=== PATIENT | male | born 1980 | race Caucasian/White ===

== ENCOUNTER 2016-04-22 09:49 | Emergency (ER) ==
[2016-04-22 09:52] VITALS: BP 142/89; TEMP 96.7; BMI 30.7
--- NOTE | 2016-04-22 10:09 | ED.PDOC ---
General ED Provider: Dr. SUZANNA AMBRIZ JR Chief Complaint: Knee Pain/Injury Stated Complaint: patient c/o pain around left knee cap. states if he moves a certain way the pain will go up or down the leg.[End]3 days 96.7 68 16 97% 142/ 89 8/10 copd arth heat stroke left knee pain[End]history of left shoulder tendonitis has not seen ortho- cannot afford them in [place] no insurance, chronic left knee pain for 2-3 years stepped off a ladder two days ago- worse pain especially with ROM lateral compartent negaticve knee exam no laxity no focal signs but symptoms most consistent with lateral meniscus or lateral condyle injury Time Seen by Physician: 10:09 Mode of Arrival: Walk-In Information Source: Patient Exam Limitations: No limitations Primary Care [facility] Nursing and Triage Documentation Reviewed and Agree: No Review of Systems - Review Of Systems Constitutional: Reports: No symptoms Eyes: Reports: No symptoms Ears, Nose, Mouth, Throat: Reports: No symptoms Respiratory: Reports: No symptoms Cardiac: Reports: No symptoms GI: Reports: No symptoms : Reports: No symptoms Musculoskeletal: Reports: Joint pain Skin: Reports: No symptoms Neurological: Reports: No symptoms Endocrine: Reports: No symptoms Hematologic/Lymphatic: Reports: No symptoms All Other Systems: Other Past Medical History - Past Medical History Previously Healthy: Yes Endocrine: Reports: None Cardiovascular: Reports: None Respiratory: Reports: Other (chronic bronchitis ) Hematological: Reports: None Gastrointestinal: Reports: None Genitourinary: Reports: None Neuro/Psych: Reports: None Musculoskeletal: Reports: None Cancer: Reports: None Other Pertinent Past Medical History: HEAT STROKE - Surgical History General Surgical History: Reports: Unknown - Family History Family History: Reports: Unknown - Social History Smoking Status: Current every day smoker, Heavy tobacco smoker Hx Substance Use: No Alcohol Screening: None Physical Exam - Physical Exam Appearance: Well-appearing Pain Distress: Moderate Neck: Supple Respiratory: Airway patent Musculoskeletal: Normal strength, ROM intact, No edema, No calf tenderness, Limited ROM (TENDER RIGHT KNEE) Skin: Warm, Dry, Normal color Neurological: Sensation intact, Motor intact, Reflexes intact, Cranial nerves intact, Alert, Oriented Psychiatric: Affect appropriate, Mood appropriate Critical Care Note - Critical Care Note Total Time (mins): 0 Course - Course Orders, Labs, Meds: Orders Category Date Time Status SID [ED SID WRAP] .ONCE EMERGENCY 04/22/16 10:54 Active ED CRUTCHES .ONCE EMERGENCY 04/22/16 10:54 Active Naproxen [Naprosyn] MEDS 04/22/16 10:25 Discontinued 500 mg PO ONCE STA KNEE, LEFT 4 VIEWS Stat RADS 04/22/16 10:25 Completed Medications Discontinued Medications Generic Name Dose Route Start Last Admin Trade Name Freq PRN Reason Stop Dose Admin Naproxen 500 mg 04/22/16 10:25 04/22/16 10:41 Naprosyn PO 04/22/16 10:26 500 mg ONCE STA Administration Vital Signs: Temp Pulse Resp BP Pulse Ox 04/22/16 09:50 96.7 F L 68 16 142/89 H 97 Departure - Departure Time of Disposition: 10:53 Disposition: HOME SELF-CARE Discharge Problem: Injury of knee Instructions: Knee Pain (ED), Meniscus Tear (ED) Condition: Fair Pt referred to PMD for follow-up: Yes Additional Instructions: limit weight for 5 days recheck PMD this week consider MRI and recommend orthopedic evaluation may use Naprosyn for pain ice 20 minutes three times a day sid for comfort Prescriptions: Naproxen [Naprosyn] 500 mg PO Q12HR PRN #30 tablet PRN Reason: PAIN Allergies/Adverse Reactions: Allergies aspirin Adverse Reaction (Verified 04/22/16 09:52) THROAT SWELLS codeine Adverse Reaction (Verified 04/22/16 09:52) BREAK OUT Penicillins Adverse Reaction (Verified 04/22/16 09:52) THROAT SWELLS Home Medications: Ambulatory Orders Naproxen [Naprosyn] 500 mg PO Q12HR PRN #30 tablet 04/22/16
[2016-04-22] MEDS ORDERED: NAPROSYN PO STA (10:25)
--- NOTE | 2016-04-22 10:48 | DI ---
Exam: Left knee four views History: Pain after trauma particularly at the left lateral condylar region Findings: AP, tunnel, lateral and sunrise views of the left knee were obtained and shows no evidenc e of fracture, malalignment nor disruption of the femoral tibial nor patellofemoral articulations. There is question of minimal lateral patellar tilt appearing new as compared to the prior study from 02/26/2008. Lateral view suggests a small joint effusion. Each of the three compartments appear n ormal in width. IMPRESSION: Question of slight lateral patellar tilt with slight narrowing of the lateral aspect of the patellofemoral articulation. Minimal patellar spurring. Question of a small joint effusion.
== END 2016-04-22 11:45 | disposition home or self-care (01) ==
LOC: ED 09:49
DX: M25.562 Pain in left knee (principal); G89.29 Other chronic pain; F17.210 Nicotine dependence, cigarettes, uncomplicated
CPT/HCPCS: 99283

== ENCOUNTER 2016-05-04 15:10 | Outpatient (CLI) ==
--- NOTE | 2016-05-04 21:03 | MRI ---
EXAM: MRI left knee without contrast. HISTORY: Pain. Swelling. No left knee surgery.. TECHNIQUE: Using a local extremity coil on a high field strength 1.5 June magnet multiplanar multi sequence MRI was performed of the left knee without intravenous or intra-articular gadolinium contra st.. COMPARISON: Four view plain film examination left knee 04/22/2016. FINDINGS: Within the medial compartment the medial meniscus is intact without discrete surfacing me niscal tear. 5 mm focal cartilage ulceration over the weightbearing medial compartment. More anter ior approximate 6 mm area of subchondral fracture with underlying subchondral edema. Within the lateral compartment lateral meniscus is intact without discrete surfacing meniscal tear. Lateral compartment cartilage congruent without focal underlying subchondral edema. Within the patellofemoral compartment the patella seated with intact patellar attachment of the medi al and lateral patellar retinaculum. Approximate 19 x 11 mm area of chondrosis and cartilage ulcera tion over the medial facet with underlying subchondral remodeling/edema. The trochlear groove carti maryuri relatively congruent. Moderate to large left knee effusion.. No osteochondral loose bodies. Prominent superior patella p lica.. Intact anterior and posterior cruciate ligament fibers. Intercondylar notch ganglion cyst o arturo the posterior cruciate ligament recess. The extensor mechanism is intact. Some trace prepatell ar bursitis. The medial collateral ligament as well as lateral collateral ligament complex and post erolateral corner intact. . IMPRESSION: No discrete surfacing meniscal tear. 6 mm area of subchondral fracture over the anterior weightbearing medial femoral condyle with underl yusef subchondral edema. 5 mm focal cartilage ulceration over the weightbearing medial compartment. Patellar chondrosis/chondromalacia patella. Trace prepatellar bursitis. Moderate to large left effusion. Prominent superior patella plica. Intact cruciate and collateral ligaments. Intercondylar notch ganglion cyst over the posterior cruc iate ligament recess.
== END 2016-05-04 15:11 | disposition home or self-care (01) ==
LOC: RAD 15:10
PROVIDERS: ATTEND Nurse Practitioner Family
DX: M25.562 Pain in left knee (principal); M25.462 Effusion, left knee

== ENCOUNTER 2017-01-13 23:10 | Emergency (ER) ==
[2017-01-13 23:13] VITALS: BP 132/88; TEMP 98.2; BMI 28.1
[2017-01-13] MEDS ORDERED: BACTRIM DS 800/160 MG PO STA (23:35)
--- NOTE | 2017-01-13 23:37 | ED.PDOC ---
General ED Provider: Dr. KAYDOE SMITH Chief Complaint: Abscess Stated Complaint: Patient states he has noticed a swelling on the middle of the back of the neck. Time Seen by Physician: 23:35 Mode of Arrival: Walk-In Information Source: Patient Exam Limitations: No limitations [facility] and Triage Documentation Reviewed and Agree: Yes Review of Systems - Review Of Systems Constitutional: Reports: No symptoms Eyes: Reports: No symptoms Ears, Nose, Mouth, Throat: Reports: No symptoms Respiratory: Reports: No symptoms Cardiac: Reports: No symptoms GI: Reports: No symptoms : Reports: No symptoms Musculoskeletal: Reports: No symptoms Skin: Reports: Lumps (on the back of neck. ) Neurological: Reports: No symptoms Endocrine: Reports: No symptoms Hematologic/Lymphatic: Reports: No symptoms All Other Systems: Reviewed and Negative Past Medical History - Past Medical History Previously Healthy: Yes Endocrine: Reports: None Cardiovascular: Reports: None Respiratory: Reports: Other (chronic bronchitis ) Hematological: Reports: None Gastrointestinal: Reports: None Genitourinary: Reports: None Neuro/Psych: Reports: None Musculoskeletal: Reports: None Cancer: Reports: None Other Pertinent Past Medical History: HEAT STROKE - Surgical History General Surgical History: Reports: Unknown - Family History Family History: Reports: Unknown - Social History Smoking Status: Current every day smoker, Heavy tobacco smoker Hx Substance Use: No Alcohol Screening: None Physical Exam - Physical Exam Appearance: Well-appearing, No pain distress, Well-nourished Respiratory: Airway patent, Breath sounds clear, Breath sounds equal, Respirations nonlabored Cardiovascular: RRR, Pulses normal, No rub, No murmur Psychiatric: Affect appropriate, Mood appropriate Critical Care Note - Critical Care Note Total Time (mins): 0 Course - Course Orders, Labs, Meds: Orders Category Date Time Status Sulfamethoxazole/Trimethoprim [Bactrim Ds 800/160 mg] MEDS 01/13/17 23:35 Discontinued 1 tab PO ONCE STA Medications Discontinued Medications Generic Name Dose Route Start Last Admin Trade Name Freq PRN Reason Stop Dose Admin Trimethoprim/Sulfamethoxazole 1 tab 01/13/17 23:35 01/13/17 23:46 Bactrim Ds 800/160 Mg PO 01/13/17 23:36 1 tab ONCE STA Administration Vital Signs: Temp Pulse Resp BP Pulse Ox 01/13/17 23:11 98.2 F 72 16 132/88 95 Departure - Departure Time of Disposition: 23:38 Disposition: HOME SELF-CARE Discharge Problem: Abscess, Sebaceous cyst Instructions: Abscess (ED) Condition: Fair Pt referred to PMD for follow-up: Yes Additional Instructions: Take Medications as prescribed Follow up with PCP in 3-7 days to see if need for I and D Take Motrin as needed for pain. Prescriptions: Ibuprofen [Motrin] 600 mg PO Q6H PRN #30 tablet PRN Reason: Analgesia Sulfamethoxazole/Trimethoprim [Bactrim Ds Tablet] 1 each PO BID #20 tablet Allergies/Adverse Reactions: Allergies aspirin Adverse Reaction (Verified 01/13/17 23:13) THROAT SWELLS codeine Adverse Reaction (Verified 01/13/17 23:13) BREAK OUT Penicillins Adverse Reaction (Verified 01/13/17 23:13) THROAT SWELLS Home Medications: Ambulatory Orders Ibuprofen [Motrin] 600 mg PO Q6H PRN #30 tablet 01/13/17 Sulfamethoxazole/Trimethoprim [Bactrim Ds Tablet] 1 each PO BID #20 tablet 01/13 Disposition Discussed With: Patient
== END 2017-01-14 00:10 | disposition home or self-care (01) ==
LOC: ED 23:10
DX: L72.3 Sebaceous cyst (principal)
CPT/HCPCS: 99282

== ENCOUNTER 2017-09-10 03:34 | Emergency (ER) ==
[2017-09-10 03:56] VITALS: BP 153/90; TEMP 97.1; BMI 29.4
--- NOTE | 2017-09-10 04:43 | CT ---
Exam: CT of the left shoulder without contrast History: Shoulder pain Technique: [address] of the left shoulder with multiplanar reformations FINDINGS: The acromioclavicular joint shows moderate osteoarthritic enlargement. Marginal cystic ch anges are present. The glenohumeral joint appears normal. No fatty replacement of rotator cuff musc les. No obvious abnormal joint fluid. No adjacent chest wall abnormality. Impression: 1. Osteoarthritic change of the acromioclavicular joint. 2. Normal glenohumeral joint
--- NOTE | 2017-09-10 05:29 | ED.PDOC ---
General ED Provider: Dr. BHUPINDER ESPOSITO-ER Chief Complaint: Shoulder Pain/Injury Stated Complaint: my shoulder hurts when i move my arm Time Seen by Physician: 03:45 Mode of Arrival: Walk-In Information Source: Patient Exam Limitations: No limitations Primary Care Provider: [facility] Nursing and Triage Documentation Reviewed and Agree: Yes Does patient meet sepsis criteria?: No System Inflammatory Response Syndrome: Not Applicable Sepsis Protocol: For patient's 13 years and over: Temp is 96.8 and below OR 101 and greater Pulse >90 BPM Resp >20/minute Acutely Altered Mental Status Are patient's symptoms suggestive of a new infection, such as: -Pneumonia -Skin, Soft Tissue -Endocarditis -UTI -Bone, Joint Infection -Implantable Device -Acute Abdominal Infection -Wound Infection -Meningitis -Blood Stream Catheter Infection -Unknown Musculoskeletal Complaint Exam - Shoulder Pain Complaint/Exam Mechanism of Injury: Reports: No known trauma Onset/Duration: several days Symptoms Are: Still present Timing: Intermittent Initial Severity: Mild Current Severity: Mild Location: Reports: Discrete Character: Reports: Dull, Aching, Spasmodic Aggravating: Reports: Movement, Lifting, Flexion, Extension, Internal rotation, External rotation, Abduction Associated Signs and Symptoms: Denies: Swelling, Redness, Bruising, Fever, Weakness, Numbness, Tingling Limited Range of Motion: Present: Abduction, Adduction, Flexion, Extension, Internal rotation, External rotation, Rotator cuff muscles Differential Diagnoses: Arthritis, Rotator Cuff Injury Review of Systems - Review Of Systems Constitutional: Reports: No symptoms Eyes: Reports: No symptoms Ears, Nose, Mouth, Throat: Reports: No symptoms Respiratory: Reports: No symptoms Cardiac: Reports: No symptoms GI: Reports: No symptoms : Reports: No symptoms Musculoskeletal: Reports: Joint pain Skin: Reports: No symptoms Neurological: Reports: No symptoms Endocrine: Reports: No symptoms Hematologic/Lymphatic: Reports: No symptoms All Other Systems: Reviewed and Negative Past Medical History - Past Medical History Previously Healthy: Yes Endocrine: Reports: None Cardiovascular: Reports: None Respiratory: Reports: Other (chronic bronchitis ) Hematological: Reports: None Gastrointestinal: Reports: None Genitourinary: Reports: None Neuro/Psych: Reports: None Musculoskeletal: Reports: None Cancer: Reports: None Other Pertinent Past Medical History: HEAT STROKE - Surgical History General Surgical History: Reports: Unknown - Family History Family History: Reports: Unknown - Social History Smoking Status: Current every day smoker, Heavy tobacco smoker Hx Substance Use: No Alcohol Screening: None - Immunizations Tetanus Shot up to Date: Yes Physical Exam - Physical Exam Appearance: Well-appearing, No pain distress, Well-nourished Pain Distress: Mild Eyes: JACINTO, EOMI, Conjunctiva clear ENT: Ears normal, Nose normal, Oropharynx normal Neck: Supple Respiratory: Airway patent, Breath sounds clear, Breath sounds equal, Respirations nonlabored Cardiovascular: RRR, Pulses normal, No rub, No murmur GI/: Soft Musculoskeletal: Limited ROM Skin: Warm, Dry, Normal color Neurological: Sensation intact, Motor intact, Reflexes intact, Cranial nerves intact, Alert, Oriented Psychiatric: Affect appropriate, Mood appropriate Interpretation - Radiology Interpretation Radiology Interpretation By: Radiologist Radiology Results: Positive Exam Interpreted: CT Scan Re-Evaluation - Re-Evaluation Time of Re-Evaluation: : Status: Improved Vital Signs Stable: Yes Pain Level: asleep in exam room Appearance: NAD Lungs: Clear Skin: Warm and Dry Neuro: Alert and Oriented X3 CV: RRR Additional Comments: no chest pain or dyspnea Critical Care Note - Critical Care Note Total Time (mins): 0 Course - Course Orders, Labs, Meds: Orders Category Date Time Status CT SHOULDER LEFT W/O CONTRAST Stat RADS 09/10/17 04:04 Completed Vital Signs: Temp Pulse Resp BP Pulse Ox 09/10/17 03:34 97.1 F L 89 20 153/90 H 97 Departure - Departure Time of Disposition: :29 Disposition: HOME SELF-CARE Discharge Problem: Shoulder pain Qualifiers: Chronicity: unspecified Laterality: unspecified laterality Qualified Code(s): M25.519 - Pain in unspecified shoulder Instructions: Osteoarthritis (ED) Condition: Good Pt referred to PMD for follow-up: Yes IPMP verified?: No Additional Instructions: ultram 50mg 1-2 tabs q 6hrs prn pain #12=---f.u in 2-3 days with pcsp Allergies/Adverse Reactions: Allergies aspirin Adverse Reaction (Verified 09/10/17 03:41) THROAT SWELLS codeine Adverse Reaction (Verified 09/10/17 03:41) BREAK OUT Penicillins Adverse Reaction (Verified 09/10/17 03:41) THROAT SWELLS Home Medications: Ambulatory Orders 1 [No Reported Medications] 09/10/17 Disposition Discussed With: Patient, Family
== END 2017-09-10 05:40 | disposition home or self-care (01) ==
LOC: ED 03:34
DX: M25.512 Pain in left shoulder (principal); F17.210 Nicotine dependence, cigarettes, uncomplicated
CPT/HCPCS: 99282

== ENCOUNTER 2017-09-28 10:25 | Outpatient (CLI) ==
--- NOTE | 2017-09-28 14:12 | US ---
EXAM: Ultrasound soft tissue neck HISTORY: Lipoma COMPARISON: None FINDINGS: Ultrasound soft tissue neck was performed in the region of clinical concern, posterior nec k. No mass identified. IMPRESSION: No mass identified in the region of clinical concern
== END 2017-09-28 10:26 | disposition home or self-care (01) ==
LOC: RAD 10:25
PROVIDERS: ATTEND Physician Assistant
DX: D17.9 Benign lipomatous neoplasm, unspecified (principal); R00.0 Tachycardia, unspecified
CPT/HCPCS: 93005; 93010

== ENCOUNTER 2017-10-10 13:11 | Outpatient (CLI) | END 2017-10-10 13:12 | disposition home or self-care (01) | LOC: CAR 13:11 | PROVIDERS: ATTEND Physician Assistant | DX: R06.00 Dyspnea, unspecified (principal) ==

== ENCOUNTER 2017-10-15 14:00 | Outpatient (RCR) ==
--- NOTE | 2017-09-26 15:16 | RS.OPPTEV2 ---
Date of Note: 09/26/17 Visit #: 1 Date of Evaluation: 09/26/17 Payer Source: Medicaid Surgery Performed?: No Treatment Diagnosis: L shld pain History of Condition/Mechanism of Injury:: pt states she has had a long hx of L shld pain. pt states pain has gotten worse in the past month. 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 Functional Limitations: Sleep, ADL's, Reaching, Pushing, Pulling, Lifting, Carrying Current Subjective/complaints:: pt states that he has constant L shld pain. pt states pain wakes him up frequently at night. Reports that occasionally has pain down into his hand. Treatment Side (optional): Left *Precautions: n/a Medical History Medical History: COPD, Arthritis Smoking Status: Current every day smoker Diagnostic Testing/Imaging:: Shld CT scan 09/10/17 shows osteoarthritic change of acromioclavicular joint. normal glenohumeral joint. Hx Home Medications: none Patient's Goals: decrease L shld pain and return to work Pain Assessment - Pain Description Pain Location: L shld Pain Description: Sharp, Aching Current Pain Intensity: 7-8/10 Worst Pain Intensity: 10 Functional Outcome Measure UE Functional Index: 56 (30%) - G Codes & Severity Modifier G Codes & Modifier: n/a Source of G Code score: n/a Observation - Observation Inspection: swelling noted in L AC joint Posture: Forward Head, Rounded Shoulders Handedness: Right Gait - Gait Pattern General Gait Pattern Observation: No Deviations/Normal General Range of Motion: RUE and BLE WFL's. Cervical ROM WFL's Muscle Strength: RUE and BLE 5/5 Shoulder ROM: Right WFL's Shoulder Muscle Strength: Right WFL's - Left Shoulder ROM Left Shoulder Flexion: 110 Left Shoulder Abduction: 98 Left Shoulder ROM Limitations: Soft Tissue Tightness, Muscle Weakness, Pain - Left Shoulder Strength Left Shoulder Flexion: 3- Fair- Left Shoulder Extension: 3- Fair- Left Shoulder Abduction: 2+ Poor+ - Special Tests Shoulder Empty Can (Supraspinatus) Test: Positive Left Shoulder Drop Arm Test: Positive Left Acromioclavicular Joint Distraction Test: Positive Left Comments: + lift off test L Palpation Palpation Findings: Tenderness, Trigger Point Comments:: point tenderness noted over L AC joint, trigger points noted in supraspinatus and upper trap Sensation - Sensation Right Upper Extremity: Intact/Normal Left Upper Extremity: Intact/Normal Right Lower Extremity: Intact/Normal Left Lower Extremity: Intact/Normal Balance - Sitting Balance Static Sitting Balance: Normal Dynamic Sitting Balance: Normal - Standing Balance Static Standing Balance: Normal Dynamic Standing Balance: Normal - Treatment Modality: Ultrasound Parameters/Method Applied: pulsed at 1.5w/cm2 x 7 mins Treatment Area: L shld AC joint and prox shld Patient Position: Sitting - Heat/Cryotherapy Treatment: Cryotherapy Comments:: L shld Interventions - Exercise/Activities/Manual Therapy Exercises/Activities: pt performed pendulum ex, unable to tolerate further ex due to pain. Manual Therapy: n/a HOME EXERCISE PROGRAM: pt given written HEP including pendulum ex, and isometric shld flex, shld ext, shld abd, shld add - Charges Timed Code Treatment Minutes: 51 Total Treatment Time: 60 Procedures billed for this date of service:: eval low, ultrasound, cold pack EVALUATION COMPLEXITY LEVEL EVALUATION COMPLEXITY LEVEL: HISTORY: Low (OA), EXAM OF BODY SYSTEMS: Medium ( pain, ROM, strength, posture), CLINICAL PRESENTATION: Medium (evolving), CLINICAL DECISION MAKING: Low Assessment Assessment: pt presents with decreased ROM and strength L shld with evidence of AC joint/impingement L shld. Feel pt would benefit from skilled PT for modalities to decrease pain and inflammation as well as strengthening/ROM ex. Patient Education: Home Exercise Program, Education of Plan of Care Rehab Potential: Good Short Term Goals Goal #1: pt rate pain L shld <7/10 Goal to be met by: 10/10/17 Goal #2: Improve L shld flex 115, abd 105 Goal to be met by: 10/10/17 Goal #3: pt able to sleep without interruption x 4-5 hours. Goal to be met by: 10/10/17 Goal #4: pt independent with intial HEP Goal to be met by: 10/10/17 Inclusion Special Education Teacher Goals Goal #1: pt improve L shld ROM flex 125 abd 115 Goal to be met by: 10/24/17 Goal #2: pt rate pain < 5/10 L shld Goal to be met by: 10/24/17 Goal #3: pt report improved ability to perform normal household duties Goal to be met by: 10/24/17 Plan - Treatment to be Provided Procedures: Therapeutic Exercises, Manual Therapy, Massage, Patient Education Modalities: Electrical Stimulation, Ultrasound/Phonophoresis, Cryotherapy, Hot Packs - Treatment Plan Frequency: 2 X week Duration: 4 weeks ORDER # VISITS AND/OR THROUGH DATE: 10/24/17 - Treatment Code (1) Pain in joint, shoulder region Code(s): M25.519 - PAIN IN UNSPECIFIED SHOULDER Qualifiers: Laterality: left Qualified Code(s): M25.512 - Pain in left shoulder (2) Acromioclavicular joint arthritis Code(s): M19.90 - UNSPECIFIED OSTEOARTHRITIS, UNSPECIFIED SITE Qualifiers: Laterality: left Qualified Code(s): M19.012 - Primary osteoarthritis, left shoulder (3) Limited range of motion (ROM) of shoulder Code(s): M25.619 - STIFFNESS OF UNSPECIFIED SHOULDER, NOT ELSEWHERE CLASSIFIED (4) Muscle weakness Code(s): M62.81 - MUSCLE WEAKNESS (GENERALIZED)
--- NOTE | 2017-10-03 10:41 | RS.CXNS ---
Date of scheduled appointment: 10/03/17 Type: No Show
--- NOTE | 2017-10-03 14:25 | RS.OPPTDN ---
Subjective Date of Note: 10/03/17 Visit #: 2 Date of Evaluation: 09/26/17 Payer Source: Medicaid Treatment Diagnosis: L shld pain Current Subjective/complaints:: Patient says he hurts no matter if he is at rest or with activity. Says he really wants to get back to work. Reports he has no improvement with sleep. *Precautions: n/a - Treatment Modality: Ultrasound Parameters/Method Applied: pulsed 20% @ 1.5 w/cm2 x 12 mins to the L AC and supraspinatus region Patient Position: Sitting - Heat/Cryotherapy Treatment: Cryotherapy (15 ) Interventions - Exercise/Activities/Manual Therapy Exercises/Activities: Patient receives PROM to the L shoulder supine all directions. Isometric shoulder flex/ext/IR/ER 2x5. 1# wand for bilateral shoulder flexion in supine x 8. Sitting: shoulder shrugs, scap retraction with red tband x 10. 1# wand for bilateral shoulder flexion x 8. Shoulder pulleys x 15 slowly. Total minutes of Exercise: 25 Manual Therapy: n/a HOME EXERCISE PROGRAM: pt given written HEP including pendulum ex, and isometric shld flex, shld ext, shld abd, shld add - Charges Timed Code Treatment Minutes: 37 Total Treatment Time: 52 Procedures billed for this date of service:: cp, u/s, ex2 Assessment: Patient presents with moderate to severe pain to the L shoulder and UT. Limited ROM actively, but able to achieve more mobility today passively ( flex to ~145 degrees avg and abd to ~115 degrees). Isometrics harlan well with exception of resisted shoulder flexion causing increased pain. Patient admitted reduced pain with cryotherapy. Instructed patient on how to make homemade ice bag for home. Patient Education: Education of diagnosis, Body/Joint mechanics, Home Exercise Program, Education of Plan of Care Patient demonstrates compliance with HEP?: Yes Short Term Goals Goal #1: pt rate pain L shld <7/10 Goal to be met by: 10/10/17 Progress towards Goal:: No Change Goal #2: Improve L shld flex 115, abd 105 Goal to be met by: 10/10/17 Progress towards Goal:: Progressing Goal #3: pt able to sleep without interruption x 4-5 hours. Goal to be met by: 10/10/17 Progress towards Goal:: No Change Goal #4: pt independent with intial HEP Goal to be met by: 10/10/17 Progress towards Goal:: Progressing [facility] Nurse Goals Goal #1: pt improve L shld ROM flex 125 abd 115 Goal to be met by: 10/24/17 Goal #2: pt rate pain < 5/10 L shld Goal to be met by: 10/24/17 Goal #3: pt report improved ability to perform normal household duties Goal to be met by: 10/24/17 Plan PLAN OF CARE EXPIRES ON:: 10/24/17 ORDER # VISITS AND/OR THROUGH DATE: 10/24/17 PLAN: Patient to continue to start phonophoresis and progress therex as harlan BIW.
--- NOTE | 2017-10-05 15:30 | RS.OPPTDN ---
Subjective Date of Note: 10/05/17 Visit #: 3 Date of Evaluation: 09/26/17 Payer Source: Medicaid Treatment Diagnosis: L shld pain Current Subjective/complaints:: Patient says he still has same amount of pain. Reports that he still has limited mobility and he is hesitant about returning to work due to the duties he must perform and his continued pain. Says he is still not able to sleep. Says if he is able to sleep 4 hours, he'd be happy. *Precautions: n/a - Treatment Modality: Ultrasound Parameters/Method Applied: pulsed @ 20% x 12 mins to the L UT/supraspinatus Patient Position: Sitting Interventions - Exercise/Activities/Manual Therapy Exercises/Activities: Patient receives PROM to the L shoulder supine all directions. Isometric shoulder flex/ext/IR/ER 2x5. 2# wand for bilateral shoulder flexion in supine x 10 and chest presses. Sitting: shoulder shrugs, scap retraction with red tband x 10. 1# wand for bilateral shoulder flexion x 8. Total minutes of Exercise: 25 Manual Therapy: n/a HOME EXERCISE PROGRAM: pt given written HEP including pendulum ex, and isometric shld flex, shld ext, shld abd, shld add - Charges Timed Code Treatment Minutes: 37 Total Treatment Time: 37 Procedures billed for this date of service:: u/s, ex2 Assessment: Patient demo 150 degrees active flexion during wand exercises supine. Continues with difficulty with isometric shoulder flexion and eccentric contractions. Improved A and PROM today, although pain remains the same. Patient Education: Education of diagnosis, Home Exercise Program Patient demonstrates compliance with HEP?: Yes Short Term Goals Goal #1: pt rate pain L shld <7/10 Goal to be met by: 10/10/17 Progress towards Goal:: No Change Goal #2: Improve L shld flex 115, abd 105 Goal to be met by: 10/10/17 Progress towards Goal:: Partially Met Goal #3: pt able to sleep without interruption x 4-5 hours. Goal to be met by: 10/10/17 Progress towards Goal:: No Change Goal #4: pt independent with intial HEP Goal to be met by: 10/10/17 Progress towards Goal:: Progressing [facility] Goals Goal #1: pt improve L shld ROM flex 125 abd 115 Goal to be met by: 10/24/17 Progress towards goal: Progressing Goal #2: pt rate pain < 5/10 L shld Goal to be met by: 10/24/17 Goal #3: pt report improved ability to perform normal household duties Goal to be met by: 10/24/17 Plan PLAN OF CARE EXPIRES ON:: 10/24/17 ORDER # VISITS AND/OR THROUGH DATE: 10/24/17 PLAN: Patient to continue BIW
--- NOTE | 2017-10-09 15:40 | RS.OPPTDN ---
Subjective Date of Note: 10/09/17 Visit #: 4 Date of Evaluation: 09/26/17 Payer Source: Medicaid Treatment Diagnosis: L shld pain Current Subjective/complaints:: Patient says he continues to be in pain regarding the L shoulder. He says he did work some last night, but tried to be careful. He reports he has an opportunity to work in [place] for ~1 week. He says he will be seeing the orthopaedic 10/22/17. *Precautions: n/a Pain Assessment - Pain Description Pain Location: L shoulder extending into the L UT, does not rate. - Treatment Modality: Electrical Stim Unattended Parameters/Method Applied: L anterior/post shoulder and L UT @ 105-130 pk volts hivolt x 20 mins Patient Position: Sitting - Heat/Cryotherapy Treatment: Hot Pack Interventions - Exercise/Activities/Manual Therapy Exercises/Activities: Patient receives PROM to the L shoulder supine all directions. Isometric shoulder flex/ext/IR/ER 2x5. 3# wand for bilateral shoulder flexion in supine x 10 and chest presses. Sitting: shoulder shrugs, scap retraction with green tband x 10. 3# wand for scap retraction using green tband x 10. Total minutes of Exercise: 22 Manual Therapy: n/a HOME EXERCISE PROGRAM: pt given written HEP including pendulum ex, and isometric shld flex, shld ext, shld abd, shld add - Charges Timed Code Treatment Minutes: 22 Total Treatment Time: 42 Procedures billed for this date of service:: hp, estim (un), ex Assessment: Patient continues with moderate to severe L shoulder pain that radiates to the L UT. He demo continued muscle guarding to L UT. He did respond to estim better than u/s, admitting improved pain level when leaving today. Increased PROM regarding all ranges especially flexion to ~165 degrees. Patient has resumed some work duties and may be taking a week job out of state this week. Patient Education: Education of diagnosis, Body/Joint mechanics, Home Exercise Program Short Term Goals Goal #1: pt rate pain L shld <7/10 Goal to be met by: 10/10/17 Progress towards Goal:: No Change Goal #2: Improve L shld flex 115, abd 105 Goal to be met by: 10/10/17 Progress towards Goal:: Met Goal #3: pt able to sleep without interruption x 4-5 hours. Goal to be met by: 10/10/17 Progress towards Goal:: No Change Goal #4: pt independent with intial HEP Goal to be met by: 10/10/17 Progress towards Goal:: Progressing Detention Goals Goal #1: pt improve L shld ROM flex 125 abd 115 Goal to be met by: 10/24/17 Progress towards goal: Progressing Goal #2: pt rate pain < 5/10 L shld Goal to be met by: 10/24/17 Goal #3: pt report improved ability to perform normal household duties Goal to be met by: 10/24/17 Plan PLAN OF CARE EXPIRES ON:: 10/24/17 ORDER # VISITS AND/OR THROUGH DATE: 10/24/17 PLAN: Patient to continue 2 more sessions per order and approval for insurance.
--- NOTE | 2017-10-11 15:19 | RS.OPPTDN ---
Subjective Date of Note: 10/11/17 Visit #: 5 Date of Evaluation: 09/26/17 Payer Source: Medicaid Treatment Diagnosis: L shld pain Current Subjective/complaints:: Patient reports little improvement in left shoulder pain. *Precautions: n/a Pain Assessment - Pain Description Pain Location: Left shoulder, upper arm and hand Current Pain Intensity: does not rate Worst Pain Intensity: 8-10/10 Other Comments regarding Pain:: Reports pain is usually high, feels better after Estim. Does not rate current pain on 0-10 scale. Reports numbness in the left hand 5th finger during exercise. States he has numbness in the entire left hand at times. - Treatment Modality: Electrical Stim Unattended Parameters/Method Applied: [id number] HVGC to 105p.v. with 4 small pads cross current to the left shoulder joint with HP prior to EX. Patient Position: Sitting - Heat/Cryotherapy Treatment: Hot Pack (with Estim ) Interventions - Exercise/Activities/Manual Therapy Exercises/Activities: Patient receives PROM to the left shoulder supine all directions. Isometric shoulder flex, ext, add, IR and ER. Isometrics for left sholder flex and ext with shoulder at 90 degrees fleixon. PNF patterns D1 and D2. Sitting: shoulder shrugs, scap retraction. Began green theraband for bilateral shoulder ER, 2s/10reps. Total minutes of Exercise: 17mins Manual Therapy: n/a HOME EXERCISE PROGRAM: pt given written HEP including pendulum ex, and isometric shld flex, shld ext, shld abd, shld add. Green theraband for bilateral shoulder ER. - Objective Findings Observations,measurements,etc.: Demos full left shoulder PROM and full active flexion. Demos left shoulder abduction to approx 165 degrees. Demos 4+ to 5/5 MMT. - Charges Timed Code Treatment Minutes: 17mins Total Treatment Time: 40mins Procedures billed for this date of service:: HP, Estim unattended, EX Assessment: Patient demos good strength and full ROM of the left shoulder. Patient Education: Body/Joint mechanics, Home Exercise Program Patient demonstrates compliance with HEP?: Yes Short Term Goals Goal #1: pt rate pain L shld <7/10 Goal to be met by: 10/10/17 Progress towards Goal:: No Change Goal #2: Improve L shld flex 115, abd 105 Goal to be met by: 10/10/17 Progress towards Goal:: Met Goal #3: pt able to sleep without interruption x 4-5 hours. Goal to be met by: 10/10/17 Progress towards Goal:: No Change Goal #4: pt independent with intial HEP Goal to be met by: 10/10/17 Progress towards Goal:: Partially Met [facility] Goals Goal #1: pt improve L shld ROM flex 125 abd 115 Goal to be met by: 10/24/17 Progress towards goal: Met Goal #2: pt rate pain < 5/10 L shld Goal to be met by: 10/24/17 Progress towards goal: No Change Goal #3: pt report improved ability to perform normal household duties Goal to be met by: 10/24/17 Progress towards goal: Met (FR) Comments: Reports ability to perform work duties, including overhead work. Plan PLAN OF CARE EXPIRES ON:: 10/24/17 ORDER # VISITS AND/OR THROUGH DATE: 10/24/17 PLAN: Continue next week with modalities and exercise to reduce pain.
--- NOTE | 2017-10-15 15:43 | RS.OPPTDC ---
Date of Discharge: 10/15/17 Date of Evaluation: 09/26/17 Number of Visits: 6 Treatment Diagnosis: L shld pain Current Level of Function: Patient has full ROM and 4+/5 strength grossly to the L UE. Pain remains 7-8/10 on average. Pops sporadically causing swelling locally. Guards with eccentric contractions (shoulder flex). Pain Assessment - Pain Description Pain Location: 7-8/10 Pain Description: Tightness, Radiating, Sharp Functional Outcome Measure UE Functional Index: 60 - G Codes & Severity Modifier G Codes & Modifier: na Source of G Code score: na General Range of Motion: WNL Muscle Strength: 4+/5 - Treatment Modality: Electrical Stim Unattended Parameters/Method Applied: 4 small pads surrounding the L shoulder and UT @ 170 pk volts x 20 mins prior to therex Patient Position: Sitting - Heat/Cryotherapy Treatment: Hot Pack Interventions - Exercise/Activities/Manual Therapy Exercises/Activities: Patient receives PROM to the left shoulder supine all directions. Isometric shoulder flex, ext, add, IR and ER. Isometrics for left sholder flex and ext with shoulder at 90 degrees fleixon. Green tband for bilateral horizontal ABD, bilateral shoulder ER, x 10. 3# wand for bilateral shoulder flexion and chest presses x 10 ea. Standin# wand flexion to ~100 degrees, green tband for bilateral shoulder extension and scap retraction using 3# bar x 10. Patient reassessed UE Functional Index. Provided blue tband for home to advance to in ~2-3 weeks. Encouraged ice massage at home. Total minutes of Exercise: 25 Manual Therapy: n/a HOME EXERCISE PROGRAM: pt given written HEP including pendulum ex, and isometric shld flex, shld ext, shld abd, shld add. Green theraband for bilateral shoulder ER. - Objective Findings Observations,measurements,etc.: UE Functional Index completed incorrectly at eval per patient, so all infor and measurements were not completely accurate. Scored according to presentation and subjectively with also taking in account for what his original selections were on each category. - Charges Timed Code Treatment Minutes: 25 Total Treatment Time: 45 Procedures billed for this date of service:: hp, estim (un), ex2 Assessment Assessment: Patient demo progress with mobility and strength, but remained with severe L shoulder pain. 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 At this point, he only verbalizes very temporary pain relief with modalities and it does increase with therex or work activities. Patient Education: Education of diagnosis, Body/Joint mechanics, Home Exercise Program, Activity Modification, Education of Plan of Care Rehab Potential: Fair Short Term Goals Goal #1: pt rate pain L shld <7/10 Goal to be met by: 10/10/17 Progress towards Goal:: Met Goal #2: Improve L shld flex 115, abd 105 Goal to be met by: 10/10/17 Progress towards Goal:: Met Goal #3: pt able to sleep without interruption x 4-5 hours. Goal to be met by: 10/10/17 Progress towards Goal:: No Change Goal #4: pt independent with intial HEP Goal to be met by: 10/10/17 Progress towards Goal:: Partially Met [facility] Goals Goal #1: pt improve L shld ROM flex 125 abd 115 Goal to be met by: 10/24/17 Progress towards goal: Met Goal #2: pt rate pain < 5/10 L shld Goal to be met by: 10/24/17 Progress towards goal: Progressing Goal #3: pt report improved ability to perform normal household duties Goal to be met by: 10/24/17 Progress towards goal: Met (FR) Plan Reason for Discharge:: Maximum Potential Met
== END 2017-10-16 23:59 ==
PROVIDERS: ATTEND Physician Assistant
DX: M25.512 Pain in left shoulder (principal); M19.012 Primary osteoarthritis, left shoulder; M25.612 Stiffness of left shoulder, not elsewhere classified; M62.81 Muscle weakness (generalized)

== ENCOUNTER 2017-10-24 10:34 | Outpatient (CLI) ==
--- NOTE | 2017-10-24 11:47 | CT ---
EXAM: CT of the soft tissue neck without contrast History: Posterior neck mass Technique: Multiplanar CT images through the soft tissue neck were obtained without the administrati on of IV contrast. Findings: Orbits are intact. The visualized intracranial contents demonstrate no grossly acute find ings. Paranasal sinuses are generally clear. Nasal septum is bowed to the right. Mastoid air cells are clear in general. No acute osseous abnormalities. Epiglottis is not thickened. No prevertebral soft tissue swelling. No peritonsillar inflammation. No parotid masses. No parotid inflammation. Submandibular glands are not inflamed. There is subcutaneous edema seen adjacent to the right later al mandible with a few mildly enlarged adjacent reactive lymph nodes. The visualized upper lungs are free of consolidation. No discrete thyroid nodules identified by CT. No abnormalities are identified to correlate with the palpable event of the posterior neck. Impression: 1. Subcutaneous edema adjacent to the right lateral mandible could be due to trauma or cellulitis. C orrelate clinically. 2. No abnormalities are identified to correlate with the palpable event of the posterior neck.
== END 2017-10-24 10:35 | disposition home or self-care (01) ==
LOC: RAD 10:34
PROVIDERS: ATTEND Physician Assistant
DX: R22.1 Localized swelling, mass and lump, neck (principal)

== ENCOUNTER 2017-12-16 13:44 | Emergency (ER) ==
[2017-12-16 13:49] VITALS: BP 148/95; TEMP 98.3; BMI 28.1
[2017-12-16] MEDS ORDERED: TYLENOL PO STA (14:56)
--- NOTE | 2017-12-16 14:57 | ED.PDOC ---
General ED Provider: Dr. BHUPINDER GARIBAY Chief Complaint: Tooth Problem Stated Complaint: Rt Upper gum / facial pain /tooth ache Time Seen by Physician: 13:55 Mode of Arrival: Walk-In Information Source: Patient Exam Limitations: No limitations Primary Care Provider: RYLEE SAUCEDA Nursing and Triage Documentation Reviewed and Agree: Yes Does patient meet sepsis criteria?: No System Inflammatory Response Syndrome: Not Applicable Sepsis Protocol: For patient's 13 years and over: Temp is 96.8 and below OR 101 and greater Pulse >90 BPM Resp >20/minute Acutely Altered Mental Status Are patient's symptoms suggestive of a new infection, such as: -Pneumonia -Skin, Soft Tissue -Endocarditis -UTI -Bone, Joint Infection -Implantable Device -Acute Abdominal Infection -Wound Infection -Meningitis -Blood Stream Catheter Infection -Unknown EENT Complaint Exam - Dental/Oral Complaint/Exam Mechanism of Injury: No known trauma Symptoms Are: Still present Timing: Constant Initial Severity: Moderate Current Severity: Moderate Location: Rt maxillary and infraorbital region Character: Reports: Sharp, Dull, Aching, Throbbing Aggravating: Reports: Chewing Alleviating: Reports: None Associated Signs and Symptoms: Reports: Swelling, Discharge, Foul taste in mouth Related History: Reports: Similar episode Cardiac Risk Factors: Reports: None Dental/Oral Surgical History: Reports: None Tooth Findings: Present: Percussion tenderness, Gross decay, Gross caries, Abcess Cervical Lymphadenopathy Present: Yes Facial Swelling Present: Yes Bleeding Present: No Oropharynx Findings: Absent: Clots, Active bleeding Septal Hematoma: No Foreign Body Present: No Dysphagia Present: No Drooling Present: No Asymmetrical Tonsillar Swelling Present: No Uvula Midline: No Jennifer-tonsillar Fluctuence: No Trismus Present: No Palatal Petechiae Present: No Scarlatinaform Rash Present: No Lesions: Absent: Lip Exanthem: Absent: Lip Vesicles: Absent: Lip Differential Diagnoses: Dental Abcess, Dental Caries, Odontogenic Pain, Periodontic Disease Review of Systems - Review Of Systems Constitutional: Reports: No symptoms Eyes: Reports: No symptoms Ears, Nose, Mouth, Throat: Reports: Mouth pain, Mouth swelling, Loose teeth Respiratory: Reports: No symptoms Cardiac: Reports: No symptoms GI: Reports: No symptoms : Reports: No symptoms Musculoskeletal: Reports: No symptoms, Muscle pain Skin: Reports: No symptoms Past Medical History - Past Medical History Previously Healthy: Yes Endocrine: Reports: None Cardiovascular: Reports: None Respiratory: Reports: Other (chronic bronchitis ) Hematological: Reports: None Gastrointestinal: Reports: None Genitourinary: Reports: None Neuro/Psych: Reports: None Musculoskeletal: Reports: None Cancer: Reports: None Other Pertinent Past Medical History: HEAT STROKE - Surgical History General Surgical History: Reports: Unknown - Family History Family History: Reports: Unknown - Social History Smoking Status: Current every day smoker, Heavy tobacco smoker Hx Substance Use: No Alcohol Screening: None Critical Care Note - Critical Care Note Total Time (mins): 0 Comments: 0 Course - Course Hematology/Chemistry: 12/16/17 15:12 12/16/17 15:12 Vital Signs: Temp Pulse Resp BP Pulse Ox 12/16/17 13:45 98.3 F 100 H 20 148/95 H 97 Departure - Departure Time of Disposition: 16:00 Disposition: HOME SELF-CARE Discharge Problem: Dental abscess, Maxillary sinusitis, Dental caries Instructions: Dental Abscess (ED), Toothache (ED) Condition: Fair Pt referred to PMD for follow-up: Yes IPMP verified?: No Additional Instructions: Schedule apt to see Dentist Take antibiotics FOllow up pcp in next week Allergies/Adverse Reactions: Allergies aspirin Adverse Reaction (Verified 12/16/17 13:50) THROAT SWELLS codeine Adverse Reaction (Verified 12/16/17 13:50) BREAK OUT Penicillins Adverse Reaction (Verified 12/16/17 13:50) THROAT SWELLS Home Medications: Ambulatory Orders Clindamycin HCl 300 mg PO QID #30 capsule 12/16/17 Hydrocodone/Acetaminophen [[place] 5-325 Tablet] 1 each PO Q4-6H PRN #14 tablet Disposition Discussed With: Patient
[2017-12-16] MEDS ORDERED: CLEOCIN PO STA (15:39)
--- NOTE | 2017-12-16 15:40 | CT ---
EXAM: CT of the maxillofacial region without contrast History: Right facial pain and swelling. Technique: Multiplanar CT images through the maxillofacial region were obtained without the administ ration of IV contrast Findings: Orbits are intact. The visualized intracranial contents demonstrate no grossly acute findi ngs. Epiglottis is not thickened. Moderate mucosal thickening of the right maxillary sinus. Nasal septum is bowed to the right. Mild mucosal thickening of the right ethmoid air cells and right front al sinus. No acute fracture or dislocation. Multiple dental caries and multiple missing teeth. Mul tiple right maxillary periapical dental lucencies. There is subcutaneous edema of the right cheek/fa ce. There is phlegmonous change seen adjacent to the right anterior maxilla. Evaluation for abscess is limited due to the lack of contrast administration but no large drainable fluid collections are id entified. Reactive right submandibular lymph nodes. Impression: 1. Moderate to severe cellulitis of the right cheek/face. Evaluation for abscess is limited due to th e lack of IV contrast but no large focal drainable fluid collections identified. 2. Right maxillary periapical dental abscesses probably the cause for the cellulitis. 3. Moderate right maxillary sinus disease.
== END 2017-12-16 16:11 | disposition home or self-care (01) ==
LOC: ED 13:44
DX: K08.89 Other specified disorders of teeth and supporting structures (principal); K02.9 Dental caries, unspecified; K04.7 Periapical abscess without sinus; J32.0 Chronic maxillary sinusitis
CPT/HCPCS: 36415; 80053; 85025; 99283

== ENCOUNTER 2018-11-14 07:09 | Outpatient (CLI) | payer OTHER, MEDICAID ==
[2018-11-14 07:21] VITALS: BMI 28.1
== END 2018-11-14 07:14 | disposition critical access hospital (66) ==
LOC: AMBL 07:09
PROVIDERS: ATTEND Emergency Medicine
DX: S49.92XA Unspecified injury of left shoulder and upper arm, initial encounter (principal); V09.20XA Pedestrian injured in traffic accident involving unspecified motor vehicles, initial encounter; Y93.55 Activity, bike riding; F17.210 Nicotine dependence, cigarettes, uncomplicated